=== PATIENT | male | born 1960 | race American Indian/Alaskan Native ===

== ENCOUNTER 2018-03-23 22:23 | Emergency (ER) | payer MEDICARE ==
[2018-03-23 22:45] VITALS: RESP 20
[2018-03-23 23:02] LABS: LYMPH # 1.6 K/uL (1.0-4.3); MONO # 0.2 K/uL (0.0-0.8); NEUT # 0.6 K/uL (1.8-7.0); WHITE BLOOD COUNT 2.4 K/uL (4.8-10.8)
[2018-03-23 23:05] LABS: BASO % 0.5 % (0.0-2.0); EOS % 1.6 % (0.0-4.0); LYMPH % 65.4 % (20.0-40.0); MEAN PLATELET VOLUME 8.4 fL (7.2-11.7); MONO % 9.2 % (0.0-10.0); NEUT % 23.3 % (50.0-75.0); NRBC % 0.4 % (0.0-2.0)
[2018-03-23 23:16] LABS: ALB/GLOB RATIO 0.9 (1.0-2.1)
[2018-03-23 23:17] LABS: ALBUMIN 3.1 g/dL (3.5-5.0); ALT/SGPT 155 U/L (21-72); AST/SGOT 533 U/L (17-59); BLOOD UREA NITROGEN 14 mg/dL (9-20); CALCIUM 8.1 mg/dl (8.6-10.4); GFR AFRICAN-AMERICAN > 60; GFR NON-AFRICAN AMERICAN > 60
[2018-03-23 23:26] LABS: INR 1.1; PROTHROMBIN TIME 12.3 SECONDS (9.7-12.2)
--- NOTE | 2018-03-23 23:34 | C.PDOC ---
History Of Present Illness 57 year old male presents to the emergency department with complaints of left chest pain, on and off for the past few days. Patient denies shortness of breath , or any chest pain upon arrival. Patient states that he took four tablets of Tylenol prior to arrival. Chief Complaint (Nursing): Chest Pain History Per: Patient History/Exam Limitations: no limitations Onset/Duration Of Symptoms: Days Quality: "Pain" Past Medical History Reviewed: Historical Data, Nursing Documentation, Vital Signs Vital Signs: Last Vital Signs Temp Pulse 72 03/24/18 02:09 Resp 20 03/24/18 02:09 BP 109/75 03/24/18 02:09 Pulse Ox 94 L 03/24/18 06:58 - Medical History PMH: HTN, Seizures Surgical History: No Surg Hx, Pacemaker Family History: States: Unknown Family Hx - Social History Hx Tobacco Use: No Hx Alcohol Use: Yes Hx Substance Use: No - Immunization History Hx Tetanus Toxoid Vaccination: No Review Of Systems Except As Marked, All Systems Reviewed And Found Negative. Cardiovascular: Positive for: Chest Pain Respiratory: Negative for: Shortness of Breath Physical Exam - Physical Exam Cardiovascular: Rhythm Regular Respiratory: Normal Breath Sounds, Other (patient is pain-free) Gastrointestinal/Abdominal: Normal Exam, Soft, No Tenderness ED Course And Treatment - Laboratory Results Result Diagrams: 03/23/18 22:59 03/23/18 22:59 O2 Sat by Pulse Oximetry: 94 (RA) Pulse Ox Interpretation: Normal Medical Decision Making Medical Decision Making: Plan: CMP Troponin CBC Partial Thromboplastin Time Prothrombin Time Disposition Counseled Patient/Family Regarding: Diagnosis - Disposition Referrals: [facility] [Outside] Disposition: HOME/ ROUTINE Disposition Time: 04:13 Condition: STABLE Instructions: Chest Pain Forms: [facility] (Latvian) - POA Present On Arrival: None - Clinical Impression Clinical Impression: Chest pain - Scribe Statement The provider has reviewed the documentation as recorded by the Scribe (Cheng Denney) Provider Attestation: All medical record entries made by the Scribe were at my direction and personally dictated by me. I have reviewed the chart and agree that the record accurately reflects my personal performance of the history, physical exam, medical decision making, and the department course for this patient. I have also personally directed, reviewed, and agree with the discharge instructions and disposition.
[2018-03-23 23:37] LABS: HEMOGLOBIN 14.3 g/dL (12.0-18.0); MEAN CELL VOLUME 94.3 fL (80.0-94.0); RBC 4.38 Mil/uL (4.40-5.90)
[2018-03-23 23:38] LABS: MEAN CORPUSCULAR HEMOGLOBIN 32.6 pg (27.0-31.0); MEAN CORPUSCULAR HGB CONC 34.6 g/dL (33.0-37.0); RED CELL DISTRIBUTION WIDTH 14.3 % (11.5-14.5)
[2018-03-24 02:10] VITALS: BP 109/75; PULSE 72
[2018-03-24 04:14] VITALS: O2SAT 94
--- NOTE | 2018-03-24 19:09 | CARD ---
APPROVED REPORT EKG Measurement Heart [id number] <Conclusion> Normal sinus rhythm Left ventricular hypertrophy with repolarization abnormality Abnormal ECG
== END 2018-03-24 04:30 | disposition home or self-care (01) ==
LOC: C.ER 22:23
DX: R07.9 Chest pain, unspecified (principal)

== ENCOUNTER 2019-02-08 22:18 | Emergency (ER) | payer MEDICARE ==
[2019-02-08 23:59] LABS: EOS # 0.1 K/uL (0.0-0.7); HEMOGLOBIN 14.5 g/dL (12.0-18.0); LYMPH # 1.8 K/uL (1.0-4.3); LYMPH % 57.1 % (20.0-40.0); MEAN CELL VOLUME 93.7 fL (80.0-94.0); MEAN CORPUSCULAR HEMOGLOBIN 31.3 pg (27.0-31.0); MEAN CORPUSCULAR HGB CONC 33.4 g/dL (33.0-37.0); MONO # 0.3 K/uL (0.0-0.8); MONO % 9.2 % (0.0-10.0); NEUT % 30.7 % (50.0-75.0); RBC 4.62 Mil/uL (4.40-5.90); RED CELL DISTRIBUTION WIDTH 13.9 % (11.5-14.5); WHITE BLOOD COUNT 3.1 K/uL (4.8-10.8)
--- NOTE | 2019-02-09 00:18 | C.PDOC ---
History Of Present Illness 58 year old male with Hx of schizoprhenia, presents for medication refil. state ran out of trazadone and cogentin. no hallucination. accomplanied by son gillian kirkpatrick Denies SI, HI, or other complaints. Time Seen by Provider: 02/08/19 23:12 Chief Complaint (Nursing): Psychiatric Evaluation History Per: Patient History/Exam Limitations: no limitations Onset/Duration Of Symptoms: Hrs Current Symptoms Are (Timing): Still Present Recent travel outside of the [place]: No Past Medical History Reviewed: Historical Data, Nursing Documentation, Vital Signs Vital Signs: Last Vital Signs Temp 97.7 F 02/08/19 22:51 Pulse 78 02/08/19 22:51 Resp 16 02/08/19 22:51 BP 121/79 02/08/19 22:51 Pulse Ox 98 02/08/19 22:51 - Medical History PMH: HTN, Seizures Surgical History: Pacemaker Family History: States: Unknown Family Hx - Social History Hx Tobacco Use: No Hx Alcohol Use: Yes Hx Substance Use: No - Immunization History Hx Tetanus Toxoid Vaccination: No Hx Influenza Vaccination: Yes Hx Pneumococcal Vaccination: Yes Review Of Systems Constitutional: Negative for: Fever, Chills Cardiovascular: Negative for: Chest Pain, Palpitations Respiratory: Negative for: Cough, Shortness of Breath Gastrointestinal: Negative for: Nausea, Vomiting Psych: Negative for: Suicidal ideation, Other (Homicidal ideation) Physical Exam - Physical Exam Appears: Non-toxic, Other (Bizarre affect) Skin: Normal Color, Warm Head: Atraumatic, Normacephalic Eye(s): bilateral: Normal Inspection Oral Mucosa: Moist Neck: Normal, Supple Chest: Symmetrical, No Tenderness Cardiovascular: Rhythm Regular Respiratory: Normal Breath Sounds, No Rales, No Rhonchi, No Wheezing Gastrointestinal/Abdominal: Soft, No Tenderness Neurological/Psych: Oriented x3, Normal Speech ED Course And Treatment - Laboratory Results Result Diagrams: 02/08/19 23:54 O2 Sat by Pulse Oximetry: 98 (Room air) Pulse Ox Interpretation: Normal Medical Decision Making Medical Decision Making: requesting med refill no acutely pyschotic. pt does not know medication dosage he is on. i advised him to f/u outpt with psych. Disposition - Disposition Referrals: Pending Sale To [facility] [Outside] [facility] [Outside] Disposition: HOME/ ROUTINE Disposition Time: 01:00 Condition: STABLE Additional Instructions: return to er with worsneing. Instructions: Schizophrenia Forms: [facility] (Libyan) - Clinical Impression Clinical Impression: Medication refill - Scribe Statement The provider has reviewed the documentation as recorded by the Scribjairo Henley All medical record entries made by the Scribe were at my direction and personally dictated by me. I have reviewed the chart and agree that the record accurately reflects my personal performance of the history, physical exam, medical decision making, and the department course for this patient. I have also personally directed, reviewed, and agree with the discharge instructions and disposition.
[2019-02-09 00:46] LABS: BARBITURATES, UR NEGATIVE (NEGATIVE); BENZODIAZEPINES, UR NEGATIVE (NEGATIVE); OPIATES, UR NEGATIVE (NEGATIVE); PHENCYCLIDINE, UR NEGATIVE (NEGATIVE)
[2019-02-09 00:46] LABS: SALICYLATE < 1.0 mg/dL 1
[2019-02-09 00:49] LABS: ACETAMINOPHEN < 10.0 ug/mL (10.0-30.0)
[2019-02-09 00:55] LABS: URINE BILIRUBIN NEGATIVE (NEGATIVE); URINE BLOOD NEGATIVE (NEGATIVE); URINE CLARITY Clear (Clear); URINE COLOR Colorless (YELLOW); URINE GLUCOSE (UA) NORMAL (Normal); URINE LEUKOCYTE ESTERASE NEG Leu/uL (Negative); URINE PROTEIN NEGATIVE (NEGATIVE); URINE UROBILINOGEN NORMAL mg/dL (0.2-1.0)
[2019-02-09 00:56] LABS: VALPROIC ACID < 10.0 ug/mL (50.0-100.0)
[2019-02-09 01:09] VITALS: BP 126/72; PULSE 81; RESP 18; TEMP 98.2
[2019-02-09 03:21] VITALS: O2SAT 98
== END 2019-02-09 01:10 | disposition home or self-care (01) ==
LOC: C.ER 22:18
DX: Z76.0 Encounter for issue of repeat prescription (principal); F20.9 Schizophrenia, unspecified; I10 Essential (primary) hypertension; Z95.0 Presence of cardiac pacemaker; Z87.891 Personal history of nicotine dependence
CPT/HCPCS: 80164; 81001; 85025; 99285; G0480